=== PATIENT | male | born 1985 | race Two or more races ===

== ENCOUNTER 2018-09-13 12:09 | Emergency (ER) | payer SELFPAY ==
--- NOTE | 2018-09-13 12:29 | EDM.PDOC ---
ED HPI GENERAL MEDICAL PROBLEM - General Chief Complaint: Upper Extremity Injury/Pain Stated Complaint: INJURED LT ARM Time Seen by Provider: 09/13/18 12:12 Source of Information: Reports: Patient History Limitations: Reports: No Limitations - History of Present Illness INITIAL COMMENTS - FREE TEXT/NARRATIVE: HISTORY AND PHYSICAL: History of present illness: Patient is a 33-year-old male who presents to the emergency room with complaints of left wrist pain. He states he had fallen a few days ago and since then has had pain and swelling of the left wrist. He denies any numbness, tingling or weakness of the extremity. Denies any previous injuries or surgeries of the affected extremity. He denies hitting his head or having any loss of consciousness. [employer] services were used Review of systems: As per history of present illness and below otherwise all systems reviewed and negative. Past medical history: As per history of present illness and as reviewed below otherwise noncontributory. Surgical history: As per history of present illness and as reviewed below otherwise noncontributory. Social history: See social history for further information Family history: As per history of present illness and as reviewed below otherwise noncontributory. Physical exam: General: Well-developed and well-nourished 33-year-old male. Alert and oriented. Nontoxic appearing and in no acute distress. HEENT: Atraumatic, normocephalic, pupils equal and reactive bilaterally, negative for conjunctival pallor or scleral icterus, mucous membranes moist, TMs normal bilaterally, throat clear, neck supple, nontender, trachea midline. No drooling or trismus noted. No meningeal signs. No hot potato voice noted. Lungs: Clear to auscultation, breath sounds equal bilaterally, chest nontender. Heart: S1S2, regular rate and rhythm without overt murmur Abdomen: Soft, nondistended, nontender. Skin: Intact, warm, dry. No lesions or rashes noted. Extremities: Soft tissue swelling noted of the left wrist. Pain with palpation and flexion and extension. Strong radial pulse. Capillary refill less than 3 seconds. Otherwise moves all other extremities per self without difficulty or deficits. Neurovascular unremarkable. Neuro: Awake, alert, oriented. Cranial nerves II through XII unremarkable. Cerebellum unremarkable. Motor and sensory unremarkable throughout. Exam nonfocal. Notes: Strong radial pulse, no circulatory compromise. X-ray shows an acute, transverse , impacted, nondisplaced fracture of the distal radius. Posterior splint was placed along with sling. Discussed the need for appropriate follow-up with the orthopedic provider. Supportive care measures were reviewed and discussed. Voices understanding and is agreeable to plan of care. Denies any further questions or concerns at this time. Diagnostics: Left wrist x-ray Therapeutics: Posterior Splint, Sling Prescription: Orient Impression: Radial Fracture, Left Plan: 1. Rest, ice, elevate the affected extremity. Please wear the splint and sling as directed. 2. Tylenol and/or Ibuprofen as needed for pain management. Orient for moderate to severe pain. This medication may cause drowsiness a do not take it while driving or needing to be functioning outside of the house. 3. Follow up with the Orthopedic provider as we discussed. Please call to set up a follow-up appointment. Return to the ED as needed and as discussed. Definitive disposition and diagnosis as appropriate pending reevaluation and review of above. L forearm and wrist Pain Score (Numeric/FACES): 5 - Related Data Allergies Allergy/AdvReac Type Severity Reaction Status Date / Time No Known Allergies Allergy Verified 09/13/18 12:20 Home Meds: Home Meds Acetaminophen/HYDROcodone [Orient 325-5 MG] 1 dose PO Q4H PRN #30 tablet [Rx] Past Medical History - Past Health History Medical/Surgical History: Denies Medical/Surgical History Social & Family History - Tobacco Use Smoking Status *Q: Never Smoker - Caffeine Use Caffeine Use: Reports: None - Recreational Drug Use Recreational Drug Use: No Review of Systems - Review of Systems Review Of Systems: ROS reveals no pertinent complaints other than HPI. ED EXAM, GENERAL - Physical Exam Exam: See Below (See dictation) Course - Vital Signs Last Recorded V/S: Last Vital Signs Temp 97.1 F 09/13/18 12:17 Pulse 70 09/13/18 12:17 Resp 18 09/13/18 12:17 BP 130/82 09/13/18 12:17 Pulse Ox 98 09/13/18 12:17 - Orders/Labs/Meds Orders: Active Orders 24 hr Category Date Time Status DME for Discharge [COMM] Stat Oth 09/13/18 13:14 Ordered Departure - Departure Time of Disposition: 13:24 Disposition: Home, Self-Care 01 Clinical Impression: Fracture of radius Qualifiers: Encounter type: initial encounter Radius location: distal Fracture type: closed Fracture morphology: other fracture Laterality: left Qualified Code(s): S52.592A - Other fractures of lower end of left radius, initial encounter for closed fracture - Discharge Information Prescriptions: Acetaminophen/HYDROcodone [Orient 325-5 MG] 1 dose PO Q4H PRN #30 tablet PRN Reason: Pain Instructions: Radial Head Fracture, [id number] Referrals: PCP,None [Primary Care Provider] - Forms: ED Department Discharge Additional Instructions: The following information is given to patients seen in the emergency department who are being discharged to home. This information is to outline your options for follow-up care. We provide all patients seen in our emergency department with a follow-up referral. The need for follow-up, as well as the timing and circumstances, are variable depending upon the specifics of your emergency department visit. If you don't have a primary care physician on staff, we will provide you with a referral. We always advise you to contact your personal physician following an emergency department visit to inform them of the circumstance of the visit and for follow-up with them and/or the need for any referrals to a consulting specialist. The emergency department will also refer you to a specialist when appropriate. This referral assures that you have the opportunity for follow-up care with a specialist. All of these measure are taken in an effort to provide you with optimal care, which includes your follow-up. Under all circumstances we always encourage you to contact your private physician who remains a resource for coordinating your care. When calling for follow-up care, please make the office aware that this follow-up is from your recent emergency room visit. If for any reason you are refused follow-up, please contact the [facility] Emergency Department at and asked to speak to the emergency department charge nurse. [facility] Primary Care [address] [place] [id number] [facility] Specialty [facility] - [facility] [address] [place] [address], [address] [place] [address] 1. Rest, ice, elevate the affected extremity. Please wear the splint and sling as directed. 2. Tylenol and/or Ibuprofen as needed for pain management. Orient for moderate to severe pain. This medication may cause drowsiness a do not take it while driving or needing to be functioning outside of the house. 3. Follow up with the Orthopedic provider as we discussed. Please call to set up a follow-up appointment. Return to the ED as needed and as discussed. - My Orders Last 24 Hours: My Active Orders 09/13/18 13:14 DME for Discharge [COMM] Stat - Assessment/Plan Last 24 Hours: My Active Orders 09/13/18 13:14 DME for Discharge [COMM] Stat
--- NOTE | 2018-09-13 13:24 | CR ---
HISTORY: Pain and swelling after fall COMPARISON: None available. FINDINGS: AP, lateral, and oblique views of the left wrist are obtained for a total of three views. There is an acute, transverse, impacted fracture of the distal radius with fracture fragments in near anatomic alignment. There is no sign of intra-articular extension. There is no sign of additional fracture or dislocation. Specifically, I do not see a fracture of the distal ulna or ulnar styloid. The bones of the carpus are in anatomic alignment with the distal radius. There is no sign of significant degenerative change. The soft tissues are normal in appearance with no sign of foreign body. IMPRESSION: Acute, transverse, impacted, nondisplaced fracture of the distal radius. Dictated by Aram Jauregui MD @ Sep 13 2018 1:20PM Signed by Dr. Aram Jauregui @ Sep 13 2018 1:21PM
== END 2018-09-13 13:30 | disposition home or self-care (01) ==
LOC: MW.ED 12:09
DX: S52.592A Other fractures of lower end of left radius, initial encounter for closed fracture (principal); W19.XXXA Unspecified fall, initial encounter
CPT/HCPCS: 29125; 73110-26-LT; 73110-LT; 99283; 99283-25